=== PATIENT | female | born 1960 | race Caucasian/White ===

== ENCOUNTER → 2019-08-08 | Outpatient (CLI) | payer BC ==
--- NOTE | 2019-08-09 16:29 | KCIC ---
Bilateral digital screening mammograms with 3-D tomosynthesis: Reason for examination: Routine screening. No previous examinations available for comparison. Bilateral mammograms in CC and oblique projections were obtained with 2-D imaging and 3-D tomosynthesis imaging on a [employer] Inspiration unit and reviewed on the workstation. Interpretation was made with the benefit of CAD. The skin and nipples show no abnormalities. No abnormal axillary lymph nodes are seen. Bilateral breast implants are present. The breast parenchyma is predominantly fatty. (Breast density: Category A.) There is a small circumscribed lesion consistent with an intramammary lymph node at the 10:00 C position close to the implant. There are no other Dominant masses, suspicious calcifications or architectural distortion. Impression: No evidence of malignancy. Recommend routine screening. BI-RAD Category 2: Benign. "Our facility is accredited by the [place] [employer] Mammography Program." This patient's information has been entered into a reminder system for the patient to be notified with the results of her examination and a target date for the next mammogram. Electronically signed by: Mely Da Silva MD (08/09/2019 4:27 PM) [id number]
== END ==
LOC: KCIC MAMMO 11:35
DX: Z12.31 Encounter for screening mammogram for malignant neoplasm of breast (principal); N64.89 Other specified disorders of breast; Z96.89 Presence of other specified functional implants
CPT/HCPCS: 77063; 77067

== ENCOUNTER → 2019-08-13 | Outpatient (CLI) | payer OTHER ==
--- NOTE | 2019-08-13 11:15 | RAD ---
EXAM: Lumbar spine, 3 views; right knee, 2 views. HISTORY: Pain. COMPARISON: None. FINDINGS: Lumbar spine: 2 views of the lumbar spine are obtained. There is endplate remodeling at multiple levels. There is no fracture or listhesis. Right knee: 2 views of the right knee are obtained. There is no fracture, dislocation or subluxation. There is no joint effusion. IMPRESSION: 1. Mild multilevel endplate remodeling involving the lumbar spine. 2. No acute osseous finding. Electronically signed by: Roopa Martinez MD (08/13/2019 11:12 AM) [place] [id number]
== END | disposition home or self-care (01) ==
LOC: RAD 08:57
PROVIDERS: ATTEND Surgery
DX: M25.561 Pain in right knee (principal); M54.5 Low back pain
CPT/HCPCS: 72100; 73560